=== PATIENT | female | born 2000 | race Caucasian/White ===

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

== ENCOUNTER 2022-05-12 18:25 | Emergency (ER) | payer OTHER ==
[~2022-05-12] VITALS: Ht 160 cm; Wt 56.0 kg
[2022-05-12 20:38] LABS: BASO # 0.1 10^3/uL (0.0-0.2); BASO % 0.4 % (0.0-1.0); EOS # 0.3 10^3/uL (0.0-0.5); EOS % 1.8 % (0.0-3.0); HEMATOCRIT 39.7 % (36.0-47.0); HEMOGLOBIN 13.7 g/dl (12.0-15.5); LYMPH # 3.4 10^3/uL (1.5-5.0); LYMPH % 24.2 % (24.0-44.0); MEAN CORPUSCULAR HEMOGLOBIN 31.4 pg (27.0-33.0); MEAN CORPUSCULAR HGB CONC 34.5 g/dl (32.0-36.5); MEAN CORPUSCULAR VOLUME 90.8 fl (80.0-96.0); MONO # 1.2 10^3/uL (0.0-0.8); MONO % 8.8 % (2.0-8.0); NEUTROPHILS # 8.9 10^3/uL (1.5-8.5); NEUTROPHILS % 64.4 % (36.0-66.0); PLATELET COUNT, AUTOMATED 308 10^3/uL (150-450); RED BLOOD COUNT 4.37 10^6/uL (4.00-5.40); WHITE BLOOD COUNT 13.9 10^3/uL (4.0-10.0)
[2022-05-12 23:38] VITALS: BP 111/57
== END 2022-05-12 23:39 | disposition home or self-care (01) ==
LOC: M ED 18:25
DX: O20.0 Threatened abortion (principal); O46.90 Antepartum hemorrhage, unspecified, unspecified trimester; Z3A.01 Less than 8 weeks gestation of pregnancy

== ENCOUNTER → 2022-06-12 | Outpatient (REF) | payer OTHER | LOC: M PLALAB 10:29 | PROVIDERS: ATTEND Advanced Practice Midwife | DX: Z34.01 Encounter for supervision of normal first pregnancy, first trimester (principal); Z53.9 Procedure and treatment not carried out, unspecified reason ==

== ENCOUNTER → 2022-06-12 | Outpatient (CLI) | payer OTHER ==
[2022-06-12 14:11] LABS: HEMATOCRIT 39.1 % (36.0-47.0); HEMOGLOBIN 13.3 g/dl (12.0-15.5); MEAN CORPUSCULAR HEMOGLOBIN 31.1 pg (27.0-33.0); MEAN CORPUSCULAR VOLUME 91.6 fl (80.0-96.0); PLATELET COUNT, AUTOMATED 311 10^3/uL (150-450); RED BLOOD COUNT 4.27 10^6/uL (4.00-5.40); WHITE BLOOD COUNT 12.8 10^3/uL (4.0-10.0)
[2022-06-12 16:11] LABS: GC DNA AMPLIFICATION NEGATIVE (NEGATIVE)
[2022-06-13 17:21] LABS: HIV 1&2 SCREEN ATELLICA NEGATIVE (NEGATIVE)
== END ==
LOC: M PLALAB 10:41
PROVIDERS: ATTEND Advanced Practice Midwife
DX: Z34.01 Encounter for supervision of normal first pregnancy, first trimester (principal)

== ENCOUNTER → 2022-07-11 | Outpatient (REF) | payer OTHER | LOC: M PLALAB 08:33 | PROVIDERS: ATTEND Advanced Practice Midwife | DX: N76.0 Acute vaginitis (principal); Z53.8 Procedure and treatment not carried out for other reasons ==

== ENCOUNTER → 2022-08-16 | Outpatient (CLI) | payer OTHER | LOC: M WHC 14:58 | PROVIDERS: ATTEND Advanced Practice Midwife | DX: O32.1XX0 Maternal care for breech presentation, not applicable or unspecified (principal); Z3A.20 20 weeks gestation of pregnancy ==

== ENCOUNTER → 2022-10-04 | Outpatient (CLI) | payer OTHER | LOC: M WHC 07:57 | PROVIDERS: ATTEND Advanced Practice Midwife | DX: Z34.02 Encounter for supervision of normal first pregnancy, second trimester (principal); Z3A.27 27 weeks gestation of pregnancy ==

== ENCOUNTER → 2022-10-07 | Outpatient (CLI) | payer OTHER ==
[2022-10-07 13:53] LABS: HEMATOCRIT 36.4 % (36.0-47.0); HEMOGLOBIN 12.3 g/dl (12.0-15.5); MEAN CORPUSCULAR HEMOGLOBIN 31.5 pg (27.0-33.0); MEAN CORPUSCULAR HGB CONC 33.8 g/dl (32.0-36.5); MEAN CORPUSCULAR VOLUME 93.1 fl (80.0-96.0); PLATELET COUNT, AUTOMATED 242 10^3/uL (150-450); RED BLOOD COUNT 3.91 10^6/uL (4.00-5.40); WHITE BLOOD COUNT 12.9 10^3/uL (4.0-10.0)
[2022-10-07 16:05] LABS: GC DNA AMPLIFICATION NEGATIVE (NEGATIVE)
== END ==
LOC: M PLALAB 10:51
PROVIDERS: ATTEND Advanced Practice Midwife
DX: Z34.02 Encounter for supervision of normal first pregnancy, second trimester (principal)
CPT/HCPCS: 36415; 82950; 85027; 86850; 86900; 86901; 87810; 87850; J2790

== ENCOUNTER → 2022-10-16 | Outpatient (CLI) | payer OTHER | LOC: M LAB 07:40 | PROVIDERS: ATTEND Advanced Practice Midwife | DX: O99.810 Abnormal glucose complicating pregnancy (principal); Z3A.00 Weeks of gestation of pregnancy not specified ==

== ENCOUNTER → 2022-10-18 | Outpatient (CLI) | payer OTHER | LOC: M RAD 11:47 | PROVIDERS: ATTEND Advanced Practice Midwife | DX: O36.5990 Maternal care for other known or suspected poor fetal growth, unspecified trimester, not applicable or unspecified (principal); O32.1XX0 Maternal care for breech presentation, not applicable or unspecified; Z3A.00 Weeks of gestation of pregnancy not specified ==

== ENCOUNTER → 2022-10-25 | Outpatient (CLI) | payer OTHER | LOC: M WHC 11:28 | PROVIDERS: ATTEND Advanced Practice Midwife | DX: O36.5993 Maternal care for other known or suspected poor fetal growth, unspecified trimester, fetus 3 (principal); Z3A.30 30 weeks gestation of pregnancy ==

== ENCOUNTER → 2022-11-01 | Outpatient (CLI) | payer OTHER | LOC: M WHC 11:29 | PROVIDERS: ATTEND Advanced Practice Midwife | DX: O36.5993 Maternal care for other known or suspected poor fetal growth, unspecified trimester, fetus 3 (principal); Z3A.31 31 weeks gestation of pregnancy ==

== ENCOUNTER → 2022-11-08 | Outpatient (CLI) | payer OTHER | LOC: M WHC 11:38 | PROVIDERS: ATTEND Advanced Practice Midwife | DX: O36.5990 Maternal care for other known or suspected poor fetal growth, unspecified trimester, not applicable or unspecified (principal) ==

== ENCOUNTER → 2022-11-15 | Outpatient (CLI) | payer OTHER | LOC: M PLALAB 12:22 | PROVIDERS: ATTEND Obstetrics & Gynecology | DX: O36.5930 Maternal care for other known or suspected poor fetal growth, third trimester, not applicable or unspecified (principal) ==

== ENCOUNTER → 2022-11-15 | Outpatient (CLI) | payer OTHER | LOC: M WHC 11:33 | PROVIDERS: ATTEND Advanced Practice Midwife | DX: O36.5930 Maternal care for other known or suspected poor fetal growth, third trimester, not applicable or unspecified (principal); Z3A.32 32 weeks gestation of pregnancy ==

== ENCOUNTER → 2022-11-26 | Outpatient (REF) | payer OTHER | LOC: M PLALAB 14:25 | PROVIDERS: ATTEND Obstetrics & Gynecology | DX: Z34.80 Encounter for supervision of other normal pregnancy, unspecified trimester (principal) ==

== ENCOUNTER → 2022-11-29 | Outpatient (CLI) | payer OTHER | LOC: M WHC 11:28 | PROVIDERS: ATTEND Advanced Practice Midwife | DX: O36.5930 Maternal care for other known or suspected poor fetal growth, third trimester, not applicable or unspecified (principal); Z3A.35 35 weeks gestation of pregnancy ==

== ENCOUNTER → 2022-12-06 | Outpatient (CLI) | payer OTHER | LOC: M WHC 11:20 | PROVIDERS: ATTEND Advanced Practice Midwife | DX: O36.5930 Maternal care for other known or suspected poor fetal growth, third trimester, not applicable or unspecified (principal); Z3A.36 36 weeks gestation of pregnancy ==

== ENCOUNTER 2022-12-15 07:52 | Inpatient (IN) | payer OTHER ==
[2022-12-15] VITALS (8 sets, daily range): BP systolic 114–140; BP diastolic 57–82
[~2022-12-15] VITALS: Ht 160 cm; Wt 75.8 kg
[2022-12-15] MEDS ORDERED: TUMS500C PO (08:20)
[2022-12-15] MEDS ORDERED: HOME MED LIST COMPLETE! XX SCH (08:30)
[2022-12-15] MEDS ORDERED: LR 800 ML IV ONE (08:45)
[2022-12-15 09:27] LABS: HEMATOCRIT 31.2 % (36.0-47.0); HEMOGLOBIN 10.7 g/dl (12.0-15.5); MEAN CORPUSCULAR HEMOGLOBIN 31.5 pg (27.0-33.0); MEAN CORPUSCULAR HGB CONC 34.3 g/dl (32.0-36.5); MEAN CORPUSCULAR VOLUME 91.8 fl (80.0-96.0); PLATELET COUNT, AUTOMATED 213 10^3/uL (150-450)
[2022-12-15] MEDS ORDERED: PREN1CHW6 PO (21:38)
[2022-12-15] MEDS ORDERED: LEVO75CA2 PO (21:38)
[2022-12-15] MEDS ORDERED: TRAZ-252 PO (21:39)
[2022-12-15] MEDS ORDERED: BUPR75TA5 PO (21:40)
[2022-12-15] MEDS ORDERED: miSOPROStol 50MCG 1/2 TABLET PO ONE (23:00)
[2022-12-15] MEDS: miSOPROStol 50MCG 1/2 TABLET PO PRN (23:16)
[2022-12-16] VITALS (28 sets, daily range): BP systolic 103–142; BP diastolic 56–89
[2022-12-16] MEDS: miSOPROStol 50MCG 1/2 TABLET PO PRN ×3 (03:17→11:53)
[2022-12-16] MEDS ORDERED: LIDOCAINE 1% MDV 20ML VIAL INFIL PRN (08:45)
[2022-12-16] MEDS ORDERED: LACTATED RINGER'S 1000 ML IV STA (08:45)
[2022-12-16] MEDS ORDERED: CARBOPROST TROMETHAMINE 250 MCG/ML AMP IM PRN (08:45)
[2022-12-16] MEDS ORDERED: TRANEXAMIC ACID INJection 1,000 MG in NS 100 ML IV PRN (08:45)
[2022-12-16] MEDS ORDERED: OXYTOCIN INJ 10UNITS/ML 1ML VIAL IM PRN (08:45)
[2022-12-16] MEDS ORDERED: METHYLERGONOVINE MALEATE 0.2MG/ML 1ML VIAL IM PRN (08:45)
[2022-12-16] MEDS ORDERED: OXYTOCIN DRIP 30 UNITS in IV 1 EA IV PRN (08:45)
[2022-12-16 16:11] LABS: ALT/SGPT 14 U/L (1-33); AST/SGOT 15 U/L (5-40)
[2022-12-16 16:12] LABS: BILIRUBIN,TOTAL < 0.7 MG/DL (0.2-1.3); CREATININE FOR GFR 0.5 MG/DL (0.7-1.5); LDH LACTATE DEHYDROGENASE 177 U/L (135-214); URIC ACID 4.5 MG/DL (3.1-7.8)
[2022-12-16] MEDS: LR 1,000 ML IV SCH (16:33)
[2022-12-16] MEDS: OXYTOCIN DRIP 30 UNITS in IV 1 EA IV SCH (16:47)
[2022-12-17] VITALS (59 sets, daily range): BP systolic 103–178; BP diastolic 51–121
[2022-12-17] MEDS: LR 1,000 ML IV SCH ×2 (00:37→16:25)
[2022-12-17] MEDS ORDERED: LR 500 ML IV PRN (15:40)
[2022-12-17] MEDS ORDERED: NALOXONE INJ 0.4MG/1ML VIAL IV PRN (15:40)
[2022-12-17] MEDS ORDERED: diphenhydrAMINE 50MG/ML VIAL IV PRN (15:40)
[2022-12-17] MEDS ORDERED: ONDANSETRON 4MG 2ML VIAL IV PRN (15:40)
[2022-12-17] MEDS ORDERED: ePHEDrine SULFATE 25 MG/5 ML(5MG/ML) SYRINGE IVP PRN (15:40)
[2022-12-17] MEDS ORDERED: EPIDURAL/PCA KEYS XX PRN (15:40)
[2022-12-17] MEDS ORDERED: FENTANYL/ROPIVACAINE/NACL BAG 100 ML EPIDURAL SCH (15:40)
[2022-12-17] MEDS ORDERED: FENTANYL 2MCG/ML ROPIVACAINE 0.2% IN 0.9% NACL 100ML IVBAG As Ordered ONE (15:42)
[2022-12-17] MEDS: CALCIUM CARBONATE 500 MG CHEW U/D PO PRN ×2 (18:41→23:02)
[2022-12-17] MEDS ORDERED: OXYTOCIN 30UNITS IN 0.9% NaCl 500ML IV BAG As Ordered ONE (21:42)
[2022-12-17] MEDS: OXYTOCIN DRIP 30 UNITS in IV 1 EA IV SCH (22:12)
[2022-12-17] MEDS ORDERED: OXYTOCIN DRIP 30 UNITS in IV 1 EA IV SCH (23:05)
[2022-12-17] MEDS ORDERED: DIBUCAINE 1% OINTMENT 30GM TOP PRN (23:05)
[2022-12-17] MEDS ORDERED: MOM 30ML SUSPENSION UDC PO PRN (23:05)
[2022-12-17] MEDS ORDERED: ANUSOL HC CREAM 30GM TOP PRN (23:05)
[2022-12-17] MEDS ORDERED: METHYLERGONOVINE MALEATE 0.2 MG TAB PO PRN (23:05)
[2022-12-17] MEDS ORDERED: IBUPROFEN 800 MG TAB PO PRN (23:05)
[2022-12-17] MEDS ORDERED: DOCUSATE SODIUM 100MG CAPSULE PO PRN (23:05)
[2022-12-17] MEDS ORDERED: ACETAMINOPHEN TAB 650MG DOSE (2X325MG) PO PRN (23:05)
[2022-12-17] MEDS ORDERED: RHOGAM 300MCG (1500IU) INJ IM SCH (23:05)
[2022-12-17] MEDS ORDERED: IBUPROFEN 600MG TAB PO PRN (23:05)
[2022-12-18] VITALS: BP 111/56; O2SAT 98
[2022-12-18 02:00] VITALS: BP 111/56; O2SAT 98
[2022-12-18 06:00] VITALS: BP 122/69
[2022-12-18] MEDS: PRENATAL VITAMINS CHEWABLE TABLET PO SCH (09:14)
[2022-12-18] MEDS: ACETAMINOPHEN 500 MG TAB PO PRN ×2 (14:19→20:12)
[2022-12-18 18:01] VITALS: BP 115/68; O2SAT 98
[2022-12-19 06:00] VITALS: BP 114/63; O2SAT 97
[2022-12-19] MEDS ORDERED: MEASLES,MUMPS,RUBELLA VACCINE INJ (MMR-II) SC.IMMUN ONE (09:00)
[2022-12-19] MEDS: PRENATAL VITAMINS CHEWABLE TABLET PO SCH (10:24)
[2022-12-19] MEDS ORDERED: IBUP-1022 PO (10:30)
[2022-12-19] MEDS ORDERED: COLA100C5 PO (10:30)
[2022-12-19] MEDS ORDERED: ACET-683 PO (10:30)
== END 2022-12-19 13:00 | disposition home or self-care (01) | DRG 560 ==
LOC: M LDI 07:52 → M OBS 12-17 23:48
PROVIDERS: ADMIT Obstetrics & Gynecology; ATTEND Obstetrics & Gynecology
PROC: 3E033VJ Introduction of Other Hormone into Peripheral Vein, Percutaneous Approach (ICD-10-PCS; 2022-12-16)
PROC: 10E0XZZ Delivery of Products of Conception, External Approach (ICD-10-PCS; principal; 2022-12-17)
DX: O36.5930 Maternal care for other known or suspected poor fetal growth, third trimester, not applicable or unspecified (principal); Z3A.38 38 weeks gestation of pregnancy; Z37.0 Single live birth; O99.334 Smoking (tobacco) complicating childbirth; F17.290 Nicotine dependence, other tobacco product, uncomplicated

== ENCOUNTER → 2023-08-01 | Outpatient (REF) | payer OTHER ==
[~2023-08-01] MED LIST: ACET-683 PO; BUPR75TA5 PO; COLA100C5 PO; IBUP-1022 PO; LEVO75CA2 PO; PREN1CHW6 PO; TRAZ-252 PO; TUMS500C PO
== END ==
LOC: M PLALAB 15:15
PROVIDERS: ATTEND Advanced Practice Midwife
DX: Z53.9 Procedure and treatment not carried out, unspecified reason (principal)

== ENCOUNTER → 2023-08-22 | Outpatient (CLI) | payer OTHER ==
[2023-08-22 15:37] LABS: HEMOGLOBIN 12.5 g/dl (12.0-15.5); MEAN CORPUSCULAR HEMOGLOBIN 30.5 pg (27.0-33.0); MEAN CORPUSCULAR HGB CONC 33.8 g/dl (32.0-36.5); MEAN CORPUSCULAR VOLUME 90.2 fl (80.0-96.0); PLATELET COUNT, AUTOMATED 299 10^3/uL (150-450); WHITE BLOOD COUNT 10.9 10^3/uL (4.0-10.0)
[2023-08-22 16:28] LABS: HIV 1&2 SCREEN NEGATIVE (NEGATIVE)
[2023-08-22 16:36] LABS: HEPATITIS C VIRUS ABY INDEX < 0.02 INDEX (<0.8)
== END ==
LOC: M PLALAB 13:51
PROVIDERS: ATTEND Advanced Practice Midwife
DX: Z34.91 Encounter for supervision of normal pregnancy, unspecified, first trimester (principal)

== ENCOUNTER → 2023-09-18 | Outpatient (CLI) | payer OTHER | LOC: M PLALAB 10:53 | PROVIDERS: ATTEND Obstetrics & Gynecology | DX: Z36.8A Encounter for antenatal screening for other genetic defects (principal) ==

== ENCOUNTER → 2023-11-18 | Outpatient (REF) | payer OTHER ==
[2023-11-18 21:03] LABS: GC DNA AMPLIFICATION NEGATIVE (NEGATIVE)
== END ==
LOC: M SFHCWAGY 17:15
PROVIDERS: ATTEND Advanced Practice Midwife
DX: Z34.82 Encounter for supervision of other normal pregnancy, second trimester (principal)

== ENCOUNTER → 2023-11-28 | Outpatient (CLI) | payer OTHER | LOC: M WHC 13:08 | PROVIDERS: ATTEND Obstetrics & Gynecology | DX: Z34.92 Encounter for supervision of normal pregnancy, unspecified, second trimester (principal) ==

== ENCOUNTER → 2024-01-12 | Outpatient (CLI) | payer OTHER ==
[2024-01-12 15:08] LABS: GLUCOSE CHALLENGE TEST 1 HOUR 139 MG/DL (LESS THAN 140)
[2024-01-12 15:12] LABS: HEMOGLOBIN 11.6 g/dl (12.0-15.5); MEAN CORPUSCULAR HEMOGLOBIN 31.1 pg (27.0-33.0); MEAN CORPUSCULAR HGB CONC 33.1 g/dl (32.0-36.5); MEAN CORPUSCULAR VOLUME 93.8 fl (80.0-96.0); PLATELET COUNT, AUTOMATED 212 10^3/uL (150-450); RED BLOOD COUNT 3.73 10^6/uL (4.00-5.40); WHITE BLOOD COUNT 11.6 10^3/uL (4.0-10.0)
[2024-01-12 15:43] LABS: HIV 1&2 SCREEN NEGATIVE (NEGATIVE)
[2024-01-12 15:51] LABS: HEPATITIS C VIRUS ABY INDEX 0.06 INDEX (<0.8)
== END ==
LOC: M PLALAB 11:21
PROVIDERS: ATTEND Obstetrics & Gynecology
DX: Z34.82 Encounter for supervision of other normal pregnancy, second trimester (principal)
CPT/HCPCS: 36415; 82950; 85027; 86780; 86803; 86850; 86900; 86901; 87389; J2790

== ENCOUNTER → 2024-01-13 | Outpatient (REF) | payer OTHER | LOC: M PLALAB 07:42 | PROVIDERS: ATTEND Obstetrics & Gynecology | DX: R73.09 Other abnormal glucose (principal) ==

== ENCOUNTER → 2024-01-15 | Outpatient (CLI) | payer OTHER | LOC: M LAB 07:02 | PROVIDERS: ATTEND Obstetrics & Gynecology | DX: O99.810 Abnormal glucose complicating pregnancy (principal); Z3A.00 Weeks of gestation of pregnancy not specified ==

== ENCOUNTER → 2024-01-30 | Outpatient (CLI) | payer OTHER | LOC: M WHC 13:45 | PROVIDERS: ATTEND Nurse Practitioner Family | DX: O36.5930 Maternal care for other known or suspected poor fetal growth, third trimester, not applicable or unspecified (principal); Z3A.35 35 weeks gestation of pregnancy ==

== ENCOUNTER → 2024-02-10 | Outpatient (REF) | payer OTHER | LOC: M PLALAB 13:10 | PROVIDERS: ATTEND Nurse Practitioner Family | DX: Z36.85 Encounter for antenatal screening for Streptococcus B (principal); Z3A.36 36 weeks gestation of pregnancy ==

== ENCOUNTER → 2024-06-28 | Outpatient (CLI) | payer OTHER ==
[~2024-06-28] MED LIST changes: -LEVO75CA2 PO; +LEVO75CA3 PO
[2024-06-28 17:59] LABS: HEMOGLOBIN 12.6 g/dl (12.0-15.5); MEAN CORPUSCULAR HEMOGLOBIN 29.6 pg (27.0-33.0); MEAN CORPUSCULAR HGB CONC 33.2 g/dl (32.0-36.5); MEAN CORPUSCULAR VOLUME 89.2 fl (80.0-96.0); PLATELET COUNT, AUTOMATED 324 10^3/uL (150-450); RED BLOOD COUNT 4.26 10^6/uL (4.00-5.40); WHITE BLOOD COUNT 13.4 10^3/uL (4.0-10.0)
[2024-06-28 18:36] LABS: HIV 1&2 SCREEN NEGATIVE (NEGATIVE)
[2024-06-28 18:44] LABS: HEPATITIS C VIRUS ABY INDEX < 0.02 INDEX (<0.8); Trichomonas vaginalis (AMP) NOT DETECTED (NEGATIVE)
[2024-06-28 19:08] LABS: GC DNA AMPLIFICATION NEGATIVE (NEGATIVE)
== END ==
LOC: M PLALAB 14:43
PROVIDERS: ATTEND Advanced Practice Midwife
DX: Z34.81 Encounter for supervision of other normal pregnancy, first trimester (principal)

== ENCOUNTER → 2024-06-28 | Outpatient (REF) | payer OTHER | LOC: M PLALAB 14:22 | PROVIDERS: ATTEND Advanced Practice Midwife | DX: Z34.81 Encounter for supervision of other normal pregnancy, first trimester (principal) ==

== ENCOUNTER → 2024-09-29 | Outpatient (REF) | payer OTHER ==
[2024-09-29 13:48] LABS: APPEARANCE, URINE CLEAR (CLEAR); BACTERIA, URINE AUTO NEGATIVE (NEGATIVE); BILIRUBIN, URINE AUTO NEGATIVE (NEGATIVE); BLOOD, URINE BLOOD NEGATIVE (NEGATIVE); GLUCOSE, URINE (UA) AUTO NEGATIVE (NEGATIVE); KETONE, URINE AUTO NEGATIVE (NEGATIVE); LEUKOCYTE ESTERASE, URINE AUTO NEGATIVE (NEGATIVE); MUCUS, URINE SMALL (NEGATIVE); NITRITE, URINE AUTO NEGATIVE (NEGATIVE); PROTEIN, URINE AUTO NEGATIVE (NEGATIVE); RBC, URINE AUTO 1 /HPF (0-3); SPECIFIC GRAVITY URINE AUTO 1.027 (1.002-1.035); SQUAMOUS EPITHELIAL CELL UR AU 2 /HPF (0-6); UROBILINOGEN, URINE AUTO 0.2 mg/dL (0.0-2.0); WBC, URINE AUTO 2 /HPF (0-3)
== END ==
LOC: M SFHCWAGY 13:02
PROVIDERS: ATTEND Advanced Practice Midwife
DX: O26.899 Other specified pregnancy related conditions, unspecified trimester (principal)

== ENCOUNTER → 2024-11-11 | Outpatient (CLI) | payer OTHER ==
[~2024-11-11] MED LIST changes: -IBUP-1022 PO; +IBUP600T42 PO
== END ==
LOC: M RAD 15:36
PROVIDERS: ATTEND Advanced Practice Midwife
DX: Z34.82 Encounter for supervision of other normal pregnancy, second trimester (principal)

== ENCOUNTER → 2024-11-17 | Outpatient (CLI) | payer OTHER ==
[~2024-11-17] MED LIST changes: +BUPR-363 PO; -BUPR75TA5 PO; +IRON1TAB2 PO
[2024-11-17 18:36] LABS: PLATELET COUNT, AUTOMATED 251 10^3/uL (150-450)
[2024-11-17 19:40] LABS: HIV 1&2 SCREEN NEGATIVE (NEGATIVE)
[2024-11-17 19:48] LABS: HEPATITIS C VIRUS ABY INDEX 0.03 INDEX (<0.8)
[2024-11-17 20:10] LABS: Trichomonas vaginalis (AMP) NOT DETECTED (NEGATIVE)
[2024-11-17 20:34] LABS: GC DNA AMPLIFICATION NEGATIVE (NEGATIVE)
== END ==
LOC: M PLALAB 14:40
PROVIDERS: ATTEND Nurse Practitioner Family
DX: Z34.93 Encounter for supervision of normal pregnancy, unspecified, third trimester (principal)

== ENCOUNTER → 2024-11-29 | Outpatient (CLI) | payer OTHER ==
[~2024-11-29] MED LIST changes: +ALBUTEROL SULFATE 2.5 MG/0.5 ML INH CONCENTRATE NEB SOLN INH PRN; -BUPR-363 PO; +BUPR75TA5 PO; +EPINEPHrine INJ 1 MG/ML 1ML AMP IM PRN; -IRON1TAB2 PO; +diphenhydrAMINE 50 MG/ML VIAL IV PRN
[2024-11-29 15:19] VITALS: BP 127/75; O2SAT 95
[2024-11-29] MEDS: IRON SUCROSE 200 MG IVP IV ONE (15:28)
[2024-11-29] MEDS: ACETAMINOPHEN 650 MG PO ONE (15:28)
== END ==
LOC: M INFU 14:50
PROVIDERS: ATTEND Nurse Practitioner Family
DX: O99.013 Anemia complicating pregnancy, third trimester (principal); D64.9 Anemia, unspecified; Z3A.00 Weeks of gestation of pregnancy not specified; Z88.5 Allergy status to narcotic agent
CPT/HCPCS: 96374; J1756

== ENCOUNTER 2024-12-06 14:27 | Outpatient (CLI) | payer OTHER ==
[~2024-12-06] VITALS: Ht 160 cm; Wt 95.0 kg
[~2024-12-06 14:27] MED LIST changes: +diphenhydrAMINE 25MG PO PRIOR TO INFUSION PO ONE
[2024-12-06 14:35] VITALS: BP 111/58; O2SAT 100
[2024-12-06] MEDS: diphenhydrAMINE 25MG PO PRIOR TO INFUSION PO ONE (14:39)
[2024-12-06] MEDS: IRON SUCROSE 200MG IVP IV ONE (14:40)
[2024-12-06] MEDS: ACETAMINOPHEN 325 MG TAB PO ONE (14:40)
[2024-12-06 16:05] VITALS: BP 118/57; O2SAT 97
== END 2024-12-06 16:05 | disposition home or self-care (01) ==
LOC: M INFU 14:27
PROVIDERS: ATTEND Nurse Practitioner Family
DX: O99.013 Anemia complicating pregnancy, third trimester (principal); Z3A.00 Weeks of gestation of pregnancy not specified
CPT/HCPCS: 96374; J1756

== ENCOUNTER → 2024-12-22 | Outpatient (CLI) | payer OTHER ==
[~2024-12-22] MED LIST changes: -ALBUTEROL SULFATE 2.5 MG/0.5 ML INH CONCENTRATE NEB SOLN INH PRN; +BUPR-363 PO; -BUPR75TA5 PO; -EPINEPHrine INJ 1 MG/ML 1ML AMP IM PRN; -diphenhydrAMINE 25MG PO PRIOR TO INFUSION PO ONE; -diphenhydrAMINE 50 MG/ML VIAL IV PRN
== END ==
LOC: M PLALAB 14:14
PROVIDERS: ATTEND Nurse Practitioner Family
DX: Z34.93 Encounter for supervision of normal pregnancy, unspecified, third trimester (principal)

== ENCOUNTER → 2024-12-22 | Outpatient (REF) | payer OTHER ==
[~2024-12-22] MED LIST changes: +IRON1TAB2 PO
== END ==
LOC: M SFHCWAGY 16:49
PROVIDERS: ATTEND Obstetrics & Gynecology
DX: Z34.93 Encounter for supervision of normal pregnancy, unspecified, third trimester (principal)

== ENCOUNTER 2025-01-02 15:12 | Outpatient (CLI) | payer OTHER ==
[~2025-01-02] VITALS: Ht 165.1 cm; Wt 94.4 kg
[~2025-01-02 15:12] MED LIST changes: -IRON1TAB2 PO
[2025-01-02] MEDS ORDERED: IRON1TAB2 PO (15:30)
[2025-01-02 15:32] VITALS: BP 120/69
[2025-01-02] MEDS: ACETAMINOPHEN 500 MG TAB PO ONE (16:28)
== END 2025-01-02 16:30 | disposition home or self-care (01) ==
LOC: M LDO 15:12
PROVIDERS: ATTEND Specialist
DX: O26.893 Other specified pregnancy related conditions, third trimester (principal); O26.853 Spotting complicating pregnancy, third trimester; O99.03 Anemia complicating the puerperium; O99.333 Smoking (tobacco) complicating pregnancy, third trimester; M54.50 Low back pain, unspecified; D50.9 Iron deficiency anemia, unspecified; F17.290 Nicotine dependence, other tobacco product, uncomplicated; Z3A.38 38 weeks gestation of pregnancy
CPT/HCPCS: 59025; G0463

== ENCOUNTER 2025-01-08 12:39 | Inpatient (IN) | payer OTHER ==
[~2025-01-08] VITALS: Ht 160 cm; Wt 94.8 kg
[~2025-01-08 12:39] MED LIST changes: +IRON1TAB2 PO
[2025-01-08 12:57] VITALS: BP 113/61
[2025-01-08] MEDS ORDERED: OXYTOCIN DRIP 30 UNITS in IV 1 EA IV PRN (13:30)
[2025-01-08] MEDS ORDERED: LIDOCAINE 1% MDV 20 ML VIAL INFIL PRN (13:30)
[2025-01-08] MEDS ORDERED: HOME MED LIST COMPLETE! XX SCH (14:05)
[2025-01-08] MEDS: miSOPROStol 50 MCG 1/2 TABLET PO SCH (14:09)
[2025-01-08 14:10] VITALS: BP 122/60
[2025-01-08 14:56] LABS: PLATELET COUNT, AUTOMATED 211 10^3/uL (150-450)
[2025-01-08 16:10] VITALS: BP 123/66
[2025-01-08 16:21] LABS: HEPATITIS C VIRUS ABY INDEX 0.02 INDEX (<0.8); HIV 1&2 SCREEN NEGATIVE (NEGATIVE)
[2025-01-08 17:48] VITALS: BP 132/70
[2025-01-08 18:10] VITALS: BP 124/58
[2025-01-08 19:03] VITALS: BP 126/63
[2025-01-09] VITALS (13 sets, daily range): BP systolic 106–154; BP diastolic 62–91; TEMP 97.8; O2SAT 97
[2025-01-09] MEDS: ACETAMINOPHEN 500 MG TAB PO ONE (00:20)
[2025-01-09] MEDS: BUTORPHANOL 2 MG/ML 1 ML VIAL IV ONE (08:28)
[2025-01-09] MEDS ORDERED: DIBUCAINE 1% OINTMENT 30 GM TOP PRN (11:30)
[2025-01-09] MEDS ORDERED: RHOGAM 300MCG (1500IU) INJ IM SCH (11:30)
[2025-01-09] MEDS ORDERED: METHYLERGONOVINE MALEATE 0.2 MG TAB PO PRN (11:30)
[2025-01-09] MEDS ORDERED: ACETAMINOPHEN 500 MG TAB PO PRN (11:30)
[2025-01-09] MEDS ORDERED: IBUPROFEN 800 MG TAB PO PRN (11:30)
[2025-01-09] MEDS ORDERED: DOCUSATE SODIUM 100 MG CAPSULE PO PRN (11:30)
[2025-01-09] MEDS ORDERED: ACETAMINOPHEN 325 MG TAB PO PRN (11:30)
[2025-01-09] MEDS: OXYTOCIN DRIP 30 UNITS in IV 1 EA IV SCH (11:44)
[2025-01-09] MEDS: IBUPROFEN 600 MG TAB PO PRN (22:21)
[2025-01-10 06:00] VITALS: BP 107/50; O2SAT 98
[2025-01-10 07:34] LABS: PLATELET COUNT, AUTOMATED 239 10^3/uL (150-450)
[2025-01-10] MEDS: PRENATAL VITAMINS CHEWABLE TABLET PO SCH (11:30)
[2025-01-10] MEDS: RHOGAM 300MCG (1500IU) INJ IM SCH (12:37)
[2025-01-10 18:00] VITALS: BP 127/75; O2SAT 98
[2025-01-11 06:00] VITALS: BP 110/51; O2SAT 96
[2025-01-11] MEDS ORDERED: MEASLES,MUMPS,RUBELLA VACCINE INJ (MMR-II) SC.IMMUN ONE (09:00)
== END 2025-01-11 11:45 | disposition home or self-care (01) | DRG 560 ==
LOC: M LDI 12:39 → M OBS 01-09 13:00
PROVIDERS: ADMIT Specialist; ATTEND Specialist
PROC: 3E0DXGC Introduction of Other Therapeutic Substance into Mouth and Pharynx, External Approach (ICD-10-PCS; 2025-01-08)
PROC: 10E0XZZ Delivery of Products of Conception, External Approach (ICD-10-PCS; principal; 2025-01-09)
DX: O69.82X0 Labor and delivery complicated by other cord entanglement, without compression, not applicable or unspecified (principal); D50.9 Iron deficiency anemia, unspecified; Z37.0 Single live birth; Z3A.39 39 weeks gestation of pregnancy; O99.02 Anemia complicating childbirth